=== PATIENT | female | born 1985 | race Two or more races ===

== ENCOUNTER → 2023-11-04 | Outpatient (REF) | LOC: M LAB 10:36 | PROVIDERS: ATTEND Family Medicine | DX: Z02.1 Encounter for pre-employment examination (principal) ==

== ENCOUNTER → 2024-08-25 | Outpatient (CLI) | payer BC ==
[2024-08-25 11:46] LABS: CHOLESTEROL RISK RATIO 2.53 (<5); LDL CHOLESTEROL 104.4 MG/DL (<100)
[2024-08-25 11:47] LABS: FERRITIN 40.2 NG/ML (7.3-270.7); THYROID STIMULATING HORMONE 1.164 uIU/ML (0.55-4.78); TOTAL 25(OH) VITAMIN D 38.6 NG/ML (20.0-100.0)
[2024-08-25 11:48] LABS: FREE T4 1.32 NG/DL (0.89-1.76)
== END ==
LOC: M PLALAB 07:55
PROVIDERS: ATTEND Student in an Organized Health Care Education/Training Program
DX: L65.9 Nonscarring hair loss, unspecified (principal); Z13.29 Encounter for screening for other suspected endocrine disorder; Z13.220 Encounter for screening for lipoid disorders; R53.82 Chronic fatigue, unspecified

== ENCOUNTER → 2025-03-01 | Outpatient (CLI) | payer BC ==
[2025-03-01 10:56] LABS: PLATELET COUNT, AUTOMATED 258 10^3/uL (150-450)
[2025-03-01 11:05] LABS: ALT/SGPT 16 U/L (7.0-40); AST/SGOT 13 U/L (<34); CALCIUM LEVEL 9.6 MG/DL (8.5-10.1); CARBON DIOXIDE LEVEL 28 MMOL/L (20-31); CHLORIDE LEVEL 104 MMOL/L (98-107); CHOLESTEROL LEVEL 198 MG/DL (<200); CHOLESTEROL RISK RATIO 2.98 (<5); CREATININE FOR GFR 0.57 MG/DL (0.55-1.30); GLOMERULAR FILTRATION RATE > 90.0 (>60); IRON (FE) 71 UG/DL (50-170); LDL CHOLESTEROL 123.4 MG/DL (<100); NON-HDL-C 131.6 MG/DL; PERCENT SATURATION 22.0 % (13.2-45.0); POTASSIUM SERUM 4.4 MMOL/L (3.5-5.1); SODIUM LEVEL 141 MMOL/L (136-145); TRIGLYCERIDES LEVEL 41 MG/DL (<150)
[2025-03-01 11:09] LABS: FREE T4 1.36 NG/DL (0.89-1.76)
[2025-03-01 11:10] LABS: TOTAL 25(OH) VITAMIN D 100.0 NG/ML (20.0-100.0); VITAMIN B12 LEVEL 561 PG/ML (211-911)
[2025-03-01 11:16] LABS: ESTIMATED AVERAGE GLUCOSE 103.0 MG/DL (60-110)
== END ==
LOC: M PLALAB 08:27
DX: R53.82 Chronic fatigue, unspecified (principal); Z13.29 Encounter for screening for other suspected endocrine disorder; Z13.1 Encounter for screening for diabetes mellitus; Z13.220 Encounter for screening for lipoid disorders